=== PATIENT | male | born 1980 | race Caucasian/White ===

== ENCOUNTER 2020-12-20 19:08 | Emergency (ER) | payer BC ==
[2020-12-20] MEDS ORDERED: BLOOD PRESSURE MED (19:27)
[2020-12-20 21:24] VITALS: BP 134/101
== END 2020-12-20 21:04 | disposition home or self-care (01) ==
LOC: ED 19:08
DX: R10.13 Epigastric pain (principal); I10 Essential (primary) hypertension; Z79.899 Other long term (current) drug therapy
CPT/HCPCS: Q9967

== ENCOUNTER → 2020-12-20 | Outpatient (CLI) | payer BC ==
[~2020-12-20] MED LIST: BLOOD PRESSURE MED
[2020-12-20 17:52] LABS: HEMATOCRIT 44.8 % (42.0-52.0); MEAN CELL VOLUME 83 fl (78-100); MEAN CORPUSCULAR HEMOGLOBIN 28 pg (27-31); MEAN CORPUSCULAR HGB CONC 34 g/dL (33-37); MEAN PLATELET VOLUME 8.7 fl (7.4-10.4); PLATELET COUNT 314 K/mm3 (130-400); RED CELL DISTRIBUTION WIDTH 12.9 % (11.5-14.5); WHITE BLOOD COUNT 8.3 K/mm3 (4.8-10.8)
[2020-12-20 18:01] LABS: ALBUMIN 4.4 g/dL (3.5-5.0)
[2020-12-20 18:02] LABS: POTASSIUM 4.2 mmol/L (3.5-5.1)
[2020-12-20 18:03] LABS: CALCIUM 9.2 mg/dL (8.3-10.5)
[2020-12-20 18:04] LABS: TOTAL PROTEIN 7.3 g/dL (6.4-8.3)
[2020-12-20 18:06] LABS: TOTAL BILIRUBIN 0.7 mg/dL (0.2-1.2)
[2020-12-20 18:21] LABS: URINE APPEARANCE CLEAR; URINE BILIRUBIN NEGATIVE (NEGATIVE); URINE BLOOD NEGATIVE (NEGATIVE); URINE COLOR YELLOW; URINE GLUCOSE NEGATIVE (NEGATIVE); URINE KETONE NEGATIVE (NEGATIVE); URINE LEUKOCYTE ESTERASE TRACE (NEGATIVE); URINE NITRATE NEGATIVE (NEGATIVE); URINE PROTEIN(semi-quant) TRACE mg/dL (NEGATIVE); URINE UROBILINOGEN NORMAL (NORMAL); URINE WBC 0-1 /hpf (0-3)
[2020-12-20 18:22] LABS: URINE MUCUS PRESENT (NOT PRESENT)
[2020-12-20 18:37] LABS: LYMPHOCYTE 13 % (20-51); MONOCYTE 4 % (3-10); NEUTROPHILS 83 % (42-75); TARGET CELLS 1+
== END ==
LOC: LAB 17:37
PROVIDERS: Nurse Practitioner
DX: R10.9 Unspecified abdominal pain (principal)